=== PATIENT | male | born 1970 | race Two or more races ===

== ENCOUNTER 2018-07-19 15:29 | Emergency (ER) | payer MEDICAID ==
[~2018-07-19] VITALS: Ht 175.3 cm; Wt 69.4 kg
[~2018-07-19 15:29] MED LIST: MIRT15TA3 PO; RISP0.2518 PO
[2018-07-19 17:26] VITALS: BP 191/111
[2018-07-19] MEDS ORDERED: KETOROLAC 30 MG/1 ML IM ONE (17:30)
[2018-07-19] MEDS ORDERED: KETOROLAC 30 MG/1 ML ONE (17:33)
== END 2018-07-19 18:29 | disposition home or self-care (01) ==
LOC: ED 18:00
DX: S39.012A Strain of muscle, fascia and tendon of lower back, initial encounter (principal); M47.896 Other spondylosis, lumbar region; M51.36 Other intervertebral disc degeneration, lumbar region; I10 Essential (primary) hypertension; F17.200 Nicotine dependence, unspecified, uncomplicated; X58.XXXA Exposure to other specified factors, initial encounter; Y93.89 Activity, other specified; Y92.89 Other specified places as the place of occurrence of the external cause; Y99.8 Other external cause status
CPT/HCPCS: 72110; 96372; 99284; J1885

== ENCOUNTER 2019-05-01 19:43 | Observation (INO) | payer MEDICAID ==
[~2019-05-01] VITALS: Ht 170.2 cm; Wt 64.2 kg
--- NOTE | 2019-05-01 20:05 | NUR ---
PT ONTO GURNEY AND IN GOWN AND ATTACHED TO MONITOR. MD AND PA AT [facility] FOR EXAM. 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 20G PIV STARTED, VITALS TAKEN. PT INTERMITTENTLY RESPONSIVE TO STAFF BUT NOT ABLE TO ANSWER ANY QUESTIONS OR FOLLOW COMMANDS. SIGNIFICANT OTHER AT BEDSIDE.
[2019-05-01] MEDS ORDERED: NALOXONE 0.4 MG/ML, 1ML ONE ×2 (20:06→20:12)
--- NOTE | 2019-05-01 20:12 | NUR ---
PT GIVEN NARCAN PER MD ORDER.
[2019-05-01] MEDS ORDERED: SODIUM CHLORIDE 0.9% 1,000ML IVBOLUS ONE (20:30)
[2019-05-01] MEDS ORDERED: NALOXONE 0.4 MG/ML, 1ML IVPush PRN (20:30)
--- NOTE | 2019-05-01 20:32 | NUR ---
SECOND DOSE OF NARCAN GIVEN, FLUIDS COMPLETED. VSS. PT'S PUPILS 2MM, BRISK BILATERALLY.
--- NOTE | 2019-05-01 20:45 | NUR ---
1MG NARCAN ORDERED, CLARIFIED POC ITH SATISH AND SINCE SECOND DOSE OF NARCAN 0.4MG GIVEN ALREADY WITH NO CHANGES IN PT CONDITION. BP 111/69, PUPILS 2MM BRISK BILATERALLY, 96% RA, RR 18 BPM. OK TO NOT GIVEN 1MG NARCAN THAT WAS ORDERED. PT TO CT AT THIS TIME.
[2019-05-01 20:50] LABS: ALANINE AMINOTRANSFERASE 115 U/L (12-78); ALBUMIN 4.4 g/dL (3.4-5.0); ANION GAP 10 mmol/L (5-15); CALCIUM 9.9 mg/dL (8.5-10.1); CHLORIDE 106 mmol/L (98-107); CREATININE 1.76 mg/dL (0.7-1.3)
[2019-05-01 20:52] LABS: ALKALINE PHOSPHATASE 68 U/L (45-117); BILIRUBIN,TOTAL 1.3 mg/dL (0.2-1.0); TOTAL PROTEIN 7.8 g/dL (6.4-8.2)
[2019-05-01] MEDS ORDERED: NALOXONE 1 MG/ML, 2ML IVPush ONE (21:00)
[2019-05-01 21:02] LABS: SALICYLATE LEVEL < 1.7 mg/dL (2.8-20.0)
--- NOTE | 2019-05-01 21:06 | NUR ---
PT BACK FORM CT. ATTACHED TO MONITOR, SIGNIFICANT OTHER AT BEDSIDE. CALL LIGHT WITHIN REACH. PT ANSWERING QUESTIONS WITH FREQUENT PROMPTING FROM STAFF. AAO X 4. PUPILS 3MM BRISK BILATERALLY.
[2019-05-01 21:10] LABS: BASOPHILS # (AUTO) 0.01 x10^3/uL (0-0.1); BASOPHILS % (AUTO) 0 % (0-1); EOSINOPHILS # (AUTO) 0.22 x10^3/uL (0-0.4); EOSINOPHILS % (AUTO) 2 % (1-7); LYMPHOCYTES # (AUTO) 2.14 x10^3/uL (1-3.4); LYMPHOCYTES % (AUTO) 22 % (22-44); MD SCAN; MEAN CORPUSCULAR HEMOGLOBIN 30.2 pg (27.5-34.5); MEAN CORPUSCULAR HGB CONC 32.9 g/dL (33.2-36.2); MEAN CORPUSCULAR VOLUME 91.9 fL (81-97); MEAN PLATELET VOLUME 7.8 fL (7.4-10.4); MONOCYTES # (AUTO) 0.59 x10^3/uL (0.2-0.8); MONOCYTES % (AUTO) 6 % (2-9); NEUTROPHILS # (AUTO) 6.79 x10^3/uL (1.8-6.8); NEUTROPHILS % (AUTO) 70 % (42-75); PLATELET COUNT 299 x10^3/uL (130-400); RED CELL DISTRIBUTION WIDTH 16.2 % (9.4-14.8)
--- NOTE | 2019-05-01 21:12 | NUR ---
MD UPDATED ON CHANGE IN PT CONDITION AND LABS, PLAN TO ADMIT.
--- NOTE | 2019-05-01 21:41 | NUR ---
PT IN GURNEY AND RESTING. FAMILY AT BEDSIDE. BOTH PT AND FAMILY UPDATED ON PLAN TO ADMIT.
--- NOTE | 2019-05-01 22:12 | NUR ---
REPORT GIVEN TO JHOANA VILLALTA. PT TO TRANSFER TO ROOM 449 WITH CHART AND BELONGINGS.
--- NOTE | 2019-05-01 22:14 | NUR ---
HOSPITALIST AT BEDSIDE.
[2019-05-01] MEDS ORDERED: SODIUM CHLORIDE 0.9% 1,000 ML IV SCH (22:30)
--- NOTE | 2019-05-01 22:34 | NUR ---
REPORT CALLED TO CHEL VILLALTA ON TELE. PT TO TRANSFER FROM MED/SURG TO TELE PER HOSPITALIST REQUEST.
[2019-05-01 22:48] VITALS: BP 120/80
[2019-05-01] MEDS ORDERED: LORazepam 2 MG/ML, 1ML IVPush PRN ×2 (23:00)
[2019-05-01] MEDS: D5%-0.45% NACL 1,000 ML IV SCH (23:38)
[2019-05-02 01:09] LABS: MICROSCOPIC INDICATED
[2019-05-02 01:14] VITALS: BP 177/105
[2019-05-02 01:16] VITALS: BP 178/109
[2019-05-02 01:23] LABS: AMPHETAMINE SCREEN, URINE Positive (Negative); BARBITURATE SCREEN, URINE Negative (Negative); BENZODIAZEPINE SCREEN, URINE Negative (Negative); CANNABINOID SCREEN, URINE Positive (Negative); COCAINE SCREEN, URINE Negative (Negative); METHADONE SCREEN, URINE Negative (Negative); OPIATE SCREEN, URINE Negative (Negative)
[2019-05-02] MEDS: hydrALAzine 20 MG/ML, 1ML IV PRN ×2 (01:23→06:09)
[2019-05-02 01:55] LABS: BILIRUBIN, DIRECT 0.2 mg/dL (0.1-0.2)
[2019-05-02 01:57] LABS: BILIRUBIN,INDIRECT 0.8 mg/dL (0.0-2.0); TOTAL PROTEIN 7.3 g/dL (6.4-8.2)
[2019-05-02 02:22] VITALS: BP 166/110
[2019-05-02 02:49] VITALS: BP 166/104
[2019-05-02] MEDS: D5%-0.45% NACL 1,000 ML IV SCH (05:25)
[2019-05-02 05:29] VITALS: BP 160/110
[2019-05-02 06:18] LABS: BASOPHILS # (AUTO) 0.07 x10^3/uL (0-0.1); BASOPHILS % (AUTO) 1 % (0-1); EOSINOPHILS # (AUTO) 0.22 x10^3/uL (0-0.4); EOSINOPHILS % (AUTO) 2 % (1-7); LYMPHOCYTES # (AUTO) 2.62 x10^3/uL (1-3.4); LYMPHOCYTES % (AUTO) 23 % (22-44); MD NO; MEAN CORPUSCULAR HEMOGLOBIN 30.3 pg (27.5-34.5); MEAN CORPUSCULAR HGB CONC 33.1 g/dL (33.2-36.2); MEAN CORPUSCULAR VOLUME 91.7 fL (81-97); MEAN PLATELET VOLUME 7.9 fL (7.4-10.4); MONOCYTES % (AUTO) 5 % (2-9); NEUTROPHILS # (AUTO) 7.74 x10^3/uL (1.8-6.8); NEUTROPHILS % (AUTO) 69 % (42-75); PLATELET COUNT 261 x10^3/uL (130-400); RED BLOOD COUNT 5.21 x10^6/uL (4.38-5.82); RED CELL DISTRIBUTION WIDTH 16.3 % (9.4-14.8)
[2019-05-02 06:34] LABS: ALBUMIN 4.1 g/dL (3.4-5.0); ANION GAP 7 mmol/L (5-15); BILIRUBIN, DIRECT 0.2 mg/dL (0.1-0.2); CALCIUM 9.3 mg/dL (8.5-10.1); CHLORIDE 107 mmol/L (98-107)
[2019-05-02 06:37] LABS: ALANINE AMINOTRANSFERASE 117 U/L (12-78); ALKALINE PHOSPHATASE 71 U/L (45-117); BILIRUBIN,INDIRECT 0.8 mg/dL (0.0-2.0); CREATININE 1.12 mg/dL (0.7-1.3); TOTAL PROTEIN 7.6 g/dL (6.4-8.2)
[2019-05-02 07:02] LABS: CREATINE KINASE, TOTAL 5283 U/L (39-308)
[2019-05-02 07:55] VITALS: BP 143/79
[2019-05-02] MEDS ORDERED: POTASSIUM CHLORIDE 40 MEQ in SODIUM CHLORIDE 0.9% 500 ML IV ONE (08:00)
[2019-05-02] MEDS ORDERED: SODIUM CHLORIDE 0.9% 1,000 ML IV SCH (22:30)
== END 2019-05-02 14:44 | disposition home or self-care (01) ==
LOC: ED 21:35 → INTOOBSV 21:42 → 4NOR 21:42 → ED 21:58 → 4EST 22:41
PROVIDERS: ADMIT Internal Medicine; ATTEND Internal Medicine
DX: G92 Toxic encephalopathy (principal); T42.6X1A Poisoning by other antiepileptic and sedative-hypnotic drugs, accidental (unintentional), initial encounter; N17.0 Acute kidney failure with tubular necrosis; E16.2 Hypoglycemia, unspecified; F19.10 Other psychoactive substance abuse, uncomplicated; E87.6 Hypokalemia; F17.200 Nicotine dependence, unspecified, uncomplicated; F31.9 Bipolar disorder, unspecified; I10 Essential (primary) hypertension; M54.9 Dorsalgia, unspecified; G89.29 Other chronic pain; M62.82 Rhabdomyolysis; Z91.5 Personal history of self-harm; Z79.82 Long term (current) use of aspirin; Z79.899 Other long term (current) drug therapy; Y92.9 Unspecified place or not applicable
CPT/HCPCS: 36415; 70450; 80048; 80053; 80076; 80178; 80307; 81001; 82140; 82550; 83735; 83930; 84132; 85025; 93005; 96361; 96374; 96375; 96376; 97161; 99284; G0378; J0360; J2310; J3480; J7030; J7040

== ENCOUNTER 2019-05-07 06:05 | Emergency (ER) | payer MEDICAID ==
[~2019-05-07] VITALS: Ht 170.2 cm; Wt 69.4 kg
[2019-05-07] MEDS ORDERED: SODIUM CHLORIDE FLUSH 10ML SYR IVF ONE (06:30)
[2019-05-07] MEDS ORDERED: ONDANSETRON 2MG/ML, 2ML IVPush ONE (06:30)
[2019-05-07] MEDS ORDERED: MORPHINE SULFATE 4 MG/ML, 1ML IVPush PRN (06:30)
[2019-05-07 06:52] LABS: BASOPHILS # (AUTO) 0.03 x10^3/uL (0-0.1); BASOPHILS % (AUTO) 0 % (0-1); EOSINOPHILS # (AUTO) 0.39 x10^3/uL (0-0.4); EOSINOPHILS % (AUTO) 5 % (1-7); LYMPHOCYTES # (AUTO) 2.35 x10^3/uL (1-3.4); LYMPHOCYTES % (AUTO) 28 % (22-44); MD NO; MEAN CORPUSCULAR HEMOGLOBIN 31.4 pg (27.5-34.5); MEAN CORPUSCULAR HGB CONC 33.3 g/dL (33.2-36.2); MEAN CORPUSCULAR VOLUME 94.3 fL (81-97); MEAN PLATELET VOLUME 7.2 fL (7.4-10.4); MONOCYTES # (AUTO) 0.17 x10^3/uL (0.2-0.8); MONOCYTES % (AUTO) 2 % (2-9); NEUTROPHILS % (AUTO) 66 % (42-75); PLATELET COUNT 280 x10^3/uL (130-400); RED BLOOD COUNT 4.44 x10^6/uL (4.38-5.82); RED CELL DISTRIBUTION WIDTH 16.5 % (9.4-14.8)
--- NOTE | 2019-05-07 06:58 | NUR ---
PT WITH IV STARTED AND TO CT BLOOD TO LAB AND PT NEEDS URINE SAMPLE PT IS AWARE.
--- NOTE | 2019-05-07 07:00 | NUR ---
ASSUMED CARE OF PT AT THIS TIME
[2019-05-07 07:03] LABS: ALBUMIN 3.5 g/dL (3.4-5.0); ANION GAP 9 mmol/L (5-15); CALCIUM 9.2 mg/dL (8.5-10.1); CHLORIDE 106 mmol/L (98-107)
[2019-05-07 07:04] LABS: CREATININE 0.78 mg/dL (0.7-1.3)
[2019-05-07] MEDS ORDERED: ONDANSETRON 2MG/ML, 2ML ONE (07:36)
[2019-05-07] MEDS ORDERED: MORPHINE SULFATE 4 MG/ML, 1ML ONE (07:36)
--- NOTE | 2019-05-07 07:50 | NUR ---
PT ASKED TO NOT LAY IN BED WITH PT DUE TO RISK OF SAFETY. SHE VERBALIZED UNDERSTANDING AND IS SITTING IN CHAIR.
--- NOTE | 2019-05-07 07:59 | NUR ---
PT MEDICATED FOR PAIN AND NAUSEA. PT INSTRUCTED TO NOT GET UP WITHOUT HELP IF HE FEELS DIZZY. PT EDUCATED REGARDING INCREASED RISK FOR FALL FROM NARCOTICS, PT VERBALIZED UNDERSTANDING. AVRIL.
--- NOTE | 2019-05-07 08:27 | NUR ---
PT RESTING, REPORTS PAIN IS "MUCH BETTER" AFTER MEDICATION. NAD. VSS.
[2019-05-07] MEDS ORDERED: GABA300C10 PO (08:31)
[2019-05-07] MEDS ORDERED: NAPROXEN (08:32)
[2019-05-07] MEDS ORDERED: HYDR12.517 PO (08:33)
[2019-05-07 08:50] LABS: CULTURE INDICATED? NO; MICROSCOPIC NOT IND
[2019-05-07 09:20] VITALS: BP 157/103
--- NOTE | 2019-05-07 09:21 | NUR ---
PLAN FOR DISCHARGE EXPLAINED TO PT AND PT VERBALIZED UNDERSTANDING. VSS. PT IS REQUESTING A CANE. IV REMOVED WITH TIP INTACT. PT REPORTS HIS PAIN IS "A LOT LESS".
--- NOTE | 2019-05-07 09:29 | NUR ---
WILLOW PROVIDED TO PT, OK'D BY DR. RAI INSTRUCTIONS EXPLAINED TO PT AND PT VERBALIZED UNDERSTANDING. PT DENIES FURTHER NEEDS. PT STEADY ON FEET.
== END 2019-05-07 09:38 | disposition home or self-care (01) ==
LOC: ED 06:32
DX: M54.6 Pain in thoracic spine (principal); M54.5 Low back pain; I10 Essential (primary) hypertension; Z88.6 Allergy status to analgesic agent
CPT/HCPCS: 36415; 74176; 80048; 81003; 82040; 85025; 96374; 96375; 99284; J2270; J2405

== ENCOUNTER 2019-05-18 21:13 | Emergency (ER) | payer MEDICAID ==
[~2019-05-18] VITALS: Ht 177.8 cm; Wt 68.0 kg
[~2019-05-18 21:13] MED LIST changes: +GABA300C10 PO; +HYDR12.517 PO; +NAPROXEN
[2019-05-18 21:16] VITALS: BP 123/78
[2019-05-18] MEDS ORDERED: KETOROLAC 30 MG/1 ML IM ONE (21:30)
--- NOTE | 2019-05-18 21:37 | NUR ---
Pt c/o right flank pain radiates to low back x 3 weeks, worse today. New onset chest pain, states "hurts with breathing". Placed on monitor, NSR, vitals stable, tachypnic, states recent use of ETOH and Mthamphetamine. Significant other at bedside. Waiting for provider and new orders.
[2019-05-18] MEDS ORDERED: KETOROLAC 30 MG/1 ML ONE (21:48)
[2019-05-18 21:50] LABS: BASOPHILS # (AUTO) 0.05 x10^3/uL (0-0.1); BASOPHILS % (AUTO) 1 % (0-1); EOSINOPHILS # (AUTO) 0.39 x10^3/uL (0-0.4); EOSINOPHILS % (AUTO) 4 % (1-7); LYMPHOCYTES # (AUTO) 1.73 x10^3/uL (1-3.4); LYMPHOCYTES % (AUTO) 20 % (22-44); MD NO; MEAN CORPUSCULAR HEMOGLOBIN 31.4 pg (27.5-34.5); MEAN CORPUSCULAR HGB CONC 33.1 g/dL (33.2-36.2); MEAN PLATELET VOLUME 7.6 fL (7.4-10.4); MONOCYTES # (AUTO) 0.44 x10^3/uL (0.2-0.8); MONOCYTES % (AUTO) 5 % (2-9); NEUTROPHILS # (AUTO) 6.24 x10^3/uL (1.8-6.8); NEUTROPHILS % (AUTO) 71 % (42-75); PLATELET COUNT 301 x10^3/uL (130-400); RED CELL DISTRIBUTION WIDTH 15.9 % (9.4-14.8)
[2019-05-18 22:03] LABS: ALBUMIN 3.3 g/dL (3.4-5.0); ANION GAP 9 mmol/L (5-15); CALCIUM 8.9 mg/dL (8.5-10.1); CHLORIDE 106 mmol/L (98-107); CREATININE 0.74 mg/dL (0.7-1.3)
[2019-05-18 22:07] LABS: TROPONIN I < 0.015 ng/mL (0.000-0.045)
--- NOTE | 2019-05-18 22:11 | NUR ---
Pt medicated for pain, urine specimen collected. Waiting for results.
[2019-05-18 22:35] LABS: MICROSCOPIC INDICATED
[2019-05-18 22:50] LABS: CULTURE INDICATED? NO
--- NOTE | 2019-05-18 23:22 | NUR ---
Pt stable for discharge to home, vitals stable, pain resolvd, exitcare reviewed, pt and verbalize understanding. Pt ambulates to front lobby w/ steady gait.
== END 2019-05-18 23:22 | disposition home or self-care (01) ==
LOC: ED 22:41
DX: S29.012A Strain of muscle and tendon of back wall of thorax, initial encounter (principal); I10 Essential (primary) hypertension; F17.200 Nicotine dependence, unspecified, uncomplicated; X58.XXXA Exposure to other specified factors, initial encounter; Y93.89 Activity, other specified; Y92.89 Other specified places as the place of occurrence of the external cause; Y99.8 Other external cause status
CPT/HCPCS: 36415; 71045; 80048; 81001; 82040; 83880; 84484; 85025; 85379; 93005; 96372; 99284; J1885